=== PATIENT | female | born 1970 | race African-American/Black ===

== ENCOUNTER 2017-09-01 17:45 | Inpatient (IN) | payer BC ==
[~2017-09-01] VITALS: Ht 175.3 cm; Wt 69.9 kg
[2017-09-01] MEDS ORDERED: ACETAMINOPHEN 325MG TABLET PO STA (18:46)
[2017-09-01] MEDS ORDERED: ASPIRIN 81MG TABLET PO ONE (19:00)
[2017-09-01 19:48] LABS: BASOPHILS % 0.8 % (0.0-2.0); EOSINOPHILS % 4.8 % (0.0-5.0); HEMATOCRIT. 40.1 % (36.0-48.0); HEMOGLOBIN. 14.1 g/dL (12.0-16.0); LYMPHOCYTES % 20.7 % (20.0-50.0); MEAN CORPUSCULAR HEMOGLOBIN 30.7 pg (28.0-32.0); MEAN CORPUSCULAR VOLUME 87.4 fL (81.0-99.0); MEAN PLATELET VOLUME 8.2 fl (7.4-10.4); MONOCYTES % 8.2 % (2.0-8.0); NEUTROPHILS % 65.5 % (40.0-76.0); PLATELET 258 x1000/uL (130-400); RED BLOOD CELL COUNT 4.59 mill/uL (4.2-5.4); RED CELL DISTRIBUTION WIDTH 12.1 % (11.6-14.6)
[2017-09-01 19:52] LABS: CHLORIDE 102 mEq/L (98-107)
[2017-09-01 19:53] LABS: PROTHROMBIN TIME 10.7 sec (9.4-11.6)
[2017-09-01 19:57] LABS: ETHANOL BLOOD < 10 mg/dL
[2017-09-01 22:24] LABS: HCG SCREEN NEGATIVE
[2017-09-01] MEDS ORDERED: ASPIRIN 81MG TABLET PO SCH (23:00)
[2017-09-01] MEDS ORDERED: ACETAMINOPHEN 325MG TABLET PO SCH (23:15)
[2017-09-01 23:20] LABS: *AMPHETAMINES SCREEN URINE NEGATIVE (NEGATIVE); *BARBITURATES SCREEN URINE NEGATIVE (NEGATIVE); *BENZODIAZEPINES SCREEN URINE NEGATIVE (NEGATIVE); *COCAINE SCREEN URINE NEGATIVE (NEGATIVE); CANNABINOID URINE SCREEN NEGATIVE (NEGATIVE); METHADONE URINE SCREEN NEGATIVE (NEGATIVE); OPIATES URINE SCREEN NEGATIVE (NEGATIVE); PHENCYCLIDINE URINE SCREEN NEGATIVE (NEGATIVE)
[2017-09-02] MEDS ORDERED: SODIUM CHLORIDE 0.9% 1,000 ML IV SCH (02:02)
[2017-09-02 06:05] VITALS: BP 130/80
[2017-09-02 08:00] VITALS: BP 115/67
[2017-09-02] MEDS: ENOXAPARIN 40MG/0.4ML SYR SUBCUT SCH (08:53)
[2017-09-02] MEDS ORDERED: MORPHINE SULFATE 4 MG/ML CPJ (NOT FOR IM USE) IV PRN (09:30)
[2017-09-02] MEDS ORDERED: MECLIZINE 25MG TABLET PO PRN (09:30)
[2017-09-02] MEDS ORDERED: HYDROCODONE/ACETAMINOPHEN 5/325MG TABLET PO PRN (09:30)
[2017-09-02] MEDS ORDERED: SUMATRIPTAN SUCCINATE 6MG/0.5ML VIAL SUBCUT SCH (10:00)
[2017-09-02 12:00] VITALS: BP 111/61
[2017-09-02 16:00] VITALS: BP 100/58
[2017-09-02 20:00] VITALS: BP 117/74
[2017-09-03] VITALS: BP 120/77
[2017-09-03 04:00] VITALS: BP 123/64
[2017-09-03 04:39] LABS: CLARITY URINE CLEAR (CLEAR); COLOR URINE YELLOW (YELLOW); KETONES URINE NEGATIVE (NEGATIVE); LEUKOCYTE ESTERASE URINE 1+ (NEGATIVE); NITRITE URINE NEGATIVE (NEGATIVE); OCCULT BLOOD URINE 3+ (NEGATIVE); PROTEIN URINE NEGATIVE (NEGATIVE); SPECIFIC GRAVITY URINE 1.015 (1.005-1.030); UROBILINOGEN URINE 0.2 E.U./dL (0.2-1.0)
[2017-09-03 06:12] LABS: BASOPHILS % 0.8 % (0.0-2.0); HEMATOCRIT. 37.4 % (36.0-48.0); HEMOGLOBIN. 13.2 g/dL (12.0-16.0); LYMPHOCYTES % 32.1 % (20.0-50.0); MEAN CORPUSCULAR HEMOGLOBIN 30.7 pg (28.0-32.0); MEAN CORPUSCULAR VOLUME 86.8 fL (81.0-99.0); MEAN PLATELET VOLUME 8.6 fl (7.4-10.4); MONOCYTES % 7.1 % (2.0-8.0); PLATELET 236 x1000/uL (130-400)
[2017-09-03 06:36] LABS: CHLORIDE 105 mEq/L (98-107)
[2017-09-03 08:00] VITALS: BP 117/69
[2017-09-03] MEDS: ENOXAPARIN 40MG/0.4ML SYR SUBCUT SCH (08:27)
[2017-09-03 09:34] LABS: *AMPHETAMINES SCREEN URINE NEGATIVE (NEGATIVE); *BARBITURATES SCREEN URINE NEGATIVE (NEGATIVE); *BENZODIAZEPINES SCREEN URINE NEGATIVE (NEGATIVE); *COCAINE SCREEN URINE NEGATIVE (NEGATIVE); CANNABINOID URINE SCREEN NEGATIVE (NEGATIVE); METHADONE URINE SCREEN NEGATIVE (NEGATIVE); PHENCYCLIDINE URINE SCREEN NEGATIVE (NEGATIVE)
[2017-09-03 10:09] LABS: OPIATES URINE SCREEN PRESUMTIVE POSITIVE (NEGATIVE)
[2017-09-03 12:00] VITALS: BP 111/68
[2017-09-03] MEDS ORDERED: ACETAMINOPHEN 325MG TABLET PO PRN (13:45)
[2017-09-03 14:13] VITALS: BP 111/68
[2017-09-03 15:40] VITALS: BP 109/67
== END 2017-09-03 16:24 | disposition home or self-care (01) | DRG 57 ==
LOC: ER 17:45 → 7WST 09-02 02:04 → EDBEDREQTM 09-02 02:08 → EDBEDREQ 09-02 02:08 → ENRESERV 09-02 04:30 → 7WST 09-02 05:54
PROVIDERS: ADMIT Internal Medicine Nephrology; ATTEND Internal Medicine Nephrology
DX: G91.9 Hydrocephalus, unspecified (principal); G43.909 Migraine, unspecified, not intractable, without status migrainosus
CPT/HCPCS: 36415; 70450; 70551; 80048; 80053; 80305; 81003; 83721; 83735; 84100; 84484; 84703; 85025; 85610; 93005; 96360; 99285; G0482; J1650; J3030; J7030

== ENCOUNTER 2018-11-01 07:18 | Emergency (ER) | payer BC, MEDICAID ==
[~2018-11-01] VITALS: Ht 162.6 cm; Wt 54.0 kg
[2018-11-01 08:43] LABS: CLARITY URINE CLEAR (CLEAR); COLOR URINE YELLOW (YELLOW); KETONES URINE NEGATIVE (NEGATIVE); LEUKOCYTE ESTERASE URINE 3+ (NEGATIVE); NITRITE URINE NEGATIVE (NEGATIVE); OCCULT BLOOD URINE NEGATIVE (NEGATIVE); PROTEIN URINE NEGATIVE (NEGATIVE); SPECIFIC GRAVITY URINE 1.004 (1.005-1.030); UROBILINOGEN URINE 0.2 E.U./dL (0.2-1.0)
[2018-11-01 09:48] VITALS: BP 157/88
== END 2018-11-01 09:49 | disposition home or self-care (01) ==
LOC: ER 07:50
DX: F41.9 Anxiety disorder, unspecified (principal); R41.9 Unspecified symptoms and signs involving cognitive functions and awareness; R20.2 Paresthesia of skin; R51 Headache
CPT/HCPCS: 81025; 99283; 99284